=== PATIENT | male | born 1945 | race Caucasian/White ===

== ENCOUNTER 2018-07-22 23:40 | Emergency (ER) | payer MEDICARE ==
[2018-07-23] MEDS: CLINDAMYCIN 150 MG CAP PO (00:11)
== END 2018-07-23 00:21 | disposition home or self-care (01) ==
LOC: M ED 23:40
DX: L02.01 Cutaneous abscess of face (principal); I10 Essential (primary) hypertension; N40.0 Benign prostatic hyperplasia without lower urinary tract symptoms; I25.2 Old myocardial infarction; Z79.899 Other long term (current) drug therapy; Z79.82 Long term (current) use of aspirin
CPT/HCPCS: 99282

== ENCOUNTER → 2021-06-06 | Outpatient (REF) | payer MEDICARE ==
[~2021-06-06] MED LIST: ASPI-527 PO; CARV25TA; CENT1TAB PO; CHLO125TA; CLEO300C2 PO; FISH100049 PO; GARL10CA2 PO; LISI40TA4; METF500T13; PREVINJ2; SIMV80TA13; VIAG100T PO; VITA100L PO; VITA400T PO
== END ==
LOC: M LAB REF 17:54
PROVIDERS: ATTEND Physician Assistant
DX: R31.9 Hematuria, unspecified (principal)

== ENCOUNTER → 2023-12-01 | Outpatient (CLI) | payer MEDICARE | LOC: M ONCR 12:43 | PROVIDERS: ATTEND General Practice | DX: C44.229 Squamous cell carcinoma of skin of left ear and external auricular canal (principal); F17.210 Nicotine dependence, cigarettes, uncomplicated; Z79.82 Long term (current) use of aspirin; Z79.84 Long term (current) use of oral hypoglycemic drugs; Z79.899 Other long term (current) drug therapy ==

== ENCOUNTER 2023-12-11 12:45 | Outpatient (RCR) | payer MEDICARE | END 2023-12-12 | LOC: M ONCR 12:45 | PROVIDERS: ATTEND General Practice | DX: Z51.0 Encounter for antineoplastic radiation therapy (principal); C44.229 Squamous cell carcinoma of skin of left ear and external auricular canal ==

== ENCOUNTER → 2024-01-12 | Outpatient (RCR) | payer MEDICARE | LOC: M ONCR 12-14 16:01 | PROVIDERS: ATTEND General Practice | DX: Z51.0 Encounter for antineoplastic radiation therapy (principal); C44.229 Squamous cell carcinoma of skin of left ear and external auricular canal ==

== ENCOUNTER 2024-01-18 16:16 | Outpatient (RCR) | payer MEDICARE | END 2024-02-11 | LOC: M ONCR 16:16 | PROVIDERS: ATTEND General Practice | DX: Z51.0 Encounter for antineoplastic radiation therapy (principal); C44.229 Squamous cell carcinoma of skin of left ear and external auricular canal ==

== ENCOUNTER → 2024-02-14 | Outpatient (CLI) | payer MEDICARE | LOC: M ONCR 15:02 | PROVIDERS: ATTEND General Practice | DX: C44.229 Squamous cell carcinoma of skin of left ear and external auricular canal (principal); L98.8 Other specified disorders of the skin and subcutaneous tissue; Z92.3 Personal history of irradiation ==

== ENCOUNTER → 2024-08-16 | Outpatient (CLI) | payer MEDICARE, OTHER | LOC: M ONCR 13:50 | PROVIDERS: ATTEND General Practice | DX: Z08 Encounter for follow-up examination after completed treatment for malignant neoplasm (principal); Z85.828 Personal history of other malignant neoplasm of skin; F17.210 Nicotine dependence, cigarettes, uncomplicated; Z79.82 Long term (current) use of aspirin; Z79.84 Long term (current) use of oral hypoglycemic drugs; Z79.899 Other long term (current) drug therapy; Z92.3 Personal history of irradiation ==

== ENCOUNTER 2025-06-23 13:11 | Inpatient (IN) | payer MEDICARE, OTHER ==
[2025-06-23] VITALS (9 sets, daily range): BP systolic 163–222; BP diastolic 73–108; TEMP 97.4; O2SAT 92–98
[~2025-06-23] VITALS: Ht 172.7 cm; Wt 91.6 kg
[~2025-06-23 13:11] MED LIST changes: +LISI40TA10; -LISI40TA4
[2025-06-23 13:41] LABS: VENOUS BASE EXCESS -0.1 (-2.0-2.0); VENOUS HCO3 27.1 MMOL/L (23.0-27.0); VENOUS O2 SATURATION 55.2 % (60.0-80.0); VENOUS PARTIAL PRESSURE CO2 54.4 mmHg (38.0-50.0); VENOUS PARTIAL PRESSURE O2 31.2 mmHg (30.0-50.0); VENOUS PH 7.315 UNITS (7.330-7.430); VENOUS STANDARD HCO3 23.4 MMOL/L; VENOUS TOTAL CO2 28.8 MMOL/L (24.0-28.0)
[2025-06-23 13:46] LABS: BASO # 0.0 10^3/uL (0.0-0.2); BASO % 0.4 % (0.0-1.0); EOS # 0.1 10^3/uL (0.0-0.5); EOS % 1.4 % (0.0-3.0); LYMPH # 1.0 10^3/uL (1.5-5.0); LYMPH % 11.6 % (24.0-44.0); MONO # 0.9 10^3/uL (0.0-0.8); MONO % 10.4 % (2.0-8.0); NEUTROPHILS # 6.5 10^3/uL (1.5-8.5); NEUTROPHILS % 75.7 % (36.0-66.0); PLATELET COUNT, AUTOMATED 249 10^3/uL (150-450)
[2025-06-23 14:10] LABS: INR 1.06
[2025-06-23 14:16] LABS: ALT/SGPT 28 U/L (7.0-40); AST/SGOT 17 U/L (<34); CALCIUM LEVEL 8.9 MG/DL (8.3-10.6); CARBON DIOXIDE LEVEL 28 MMOL/L (20-31); CHLORIDE LEVEL 93 MMOL/L (98-107); CREATININE FOR GFR 0.81 MG/DL (0.70-1.30); GLOMERULAR FILTRATION RATE > 90.0 (>42); POTASSIUM SERUM 4.7 MMOL/L (3.5-5.1); SODIUM LEVEL 130 MMOL/L (136-145)
[2025-06-23 14:18] LABS: THYROXINE (T4) 4.4 UG/DL (4.5-10.9)
[2025-06-23] MEDS ORDERED: CHLO125TA PO (14:26)
[2025-06-23] MEDS ORDERED: VITA400T19 PO (14:26)
[2025-06-23] MEDS ORDERED: OMEG10002 PO (14:26)
[2025-06-23] MEDS ORDERED: B-12100T2 PO (14:26)
[2025-06-23] MEDS ORDERED: ODOR100T3 PO (14:26)
[2025-06-23] MEDS ORDERED: ROSU20TA86 PO (14:26)
[2025-06-23] MEDS ORDERED: LOSA100T46 PO (14:26)
[2025-06-23] MEDS ORDERED: HOME MED LIST COMPLETE! XX SCH (14:30)
[2025-06-23 15:06] LABS: CPK CREATINE PHOSPHOKINASE 142.0 U/L (46-171)
[2025-06-23 15:07] LABS: CK-MB VALUE MASS 5.7 NG/ML (<3.6); MB/CK RELATIVE INDEX 4.01 (< OR =4)
[2025-06-23 15:36] LABS: CK-MB VALUE MASS 6.1 NG/ML (<3.6)
[2025-06-23 15:37] LABS: CPK CREATINE PHOSPHOKINASE 151 U/L (46-171); MB/CK RELATIVE INDEX 4.03 (< OR =4)
[2025-06-23] MEDS ORDERED: ATROPINE SULF 0.4 MG/ML 1 ML VIAL IV PRN (17:50)
[2025-06-23] MEDS ORDERED: DOPamine HCL 400 MG in IV 1 EA IV PRN (17:50)
[2025-06-23] MEDS: D5W/0.45% SODIUM CHLORIDE 1,000 ML IV SCH (18:16)
[2025-06-23] MEDS: IPRATROPIUM 0.5 MG/ALBUTEROL 2.5 MG INH SOL UD 3 ML NEB SCH (20:00)
[2025-06-23] MEDS: HEPARIN SOD 5000 UNITS/ML 1 ML VIAL/SYRINGE SC SCH (21:12)
[2025-06-23] MEDS: hydrALAZINE 20 MG/ML 1 ML VIAL IV PRN (21:13)
[2025-06-24] VITALS (25 sets, daily range): BP systolic 104–181; BP diastolic 56–91; TEMP 96.8–98; O2SAT 91–97
[2025-06-24 06:39] LABS: BASO # 0.0 10^3/uL (0.0-0.2); BASO % 0.2 % (0.0-1.0); EOS # 0.0 10^3/uL (0.0-0.5); EOS % 0.0 % (0.0-3.0); LYMPH # 0.5 10^3/uL (1.5-5.0); LYMPH % 7.8 % (24.0-44.0); MONO # 0.3 10^3/uL (0.0-0.8); MONO % 3.9 % (2.0-8.0); NEUTROPHILS # 5.7 10^3/uL (1.5-8.5); NEUTROPHILS % 87.8 % (36.0-66.0); PLATELET COUNT, AUTOMATED 210 10^3/uL (150-450)
[2025-06-24 07:05] LABS: INR 1.13
[2025-06-24 07:21] LABS: ALT/SGPT 55 U/L (7.0-40); AST/SGOT 49 U/L (<34); CALCIUM LEVEL 8.0 MG/DL (8.3-10.6); CARBON DIOXIDE LEVEL 26 MMOL/L (20-31); CHLORIDE LEVEL 92 MMOL/L (98-107); CREATININE FOR GFR 0.66 MG/DL (0.70-1.30); GLOMERULAR FILTRATION RATE > 90.0 (>42); POTASSIUM SERUM 4.2 MMOL/L (3.5-5.1); SODIUM LEVEL 126 MMOL/L (136-145)
[2025-06-24] MEDS: LR 1,000 ML IV SCH (08:05)
[2025-06-24] MEDS ORDERED: LOSARTAN 50 MG TABLET PO SCH (09:00)
[2025-06-24] MEDS ORDERED: CHLORTHALIDONE 12.5 MG PER 1/2 TABLET PO SCH (09:00)
[2025-06-24] MEDS: PANTOPRAZOLE 40MG VIAL IV SCH (09:13)
[2025-06-24] MEDS ORDERED: ONDANSETRON 4MG/2ML VIAL As Ordered ONE (12:23)
[2025-06-24] MEDS ORDERED: dexAMETHasone 4 MG/ML 1 ML VIAL As Ordered ONE (12:23)
[2025-06-24] MEDS ORDERED: LIDOCAINE 2% 100 MG/5 ML SDV (FOR ANES.) As Ordered ONE (12:24)
[2025-06-24] MEDS ORDERED: MIDAZOLAM INJ 2 MG/2 ML VIAL As Ordered ONE (12:27)
[2025-06-24] MEDS: ceFAZolin SODIUM 2 GM in DEXTROSE 5% (D5W) ADV/MINI-BAG 50 ML IV ONE (12:28)
[2025-06-24] MEDS ORDERED: ETOMIDATE 20 MG/10 ML VIAL As Ordered ONE (12:48)
[2025-06-24] MEDS ORDERED: ROCURONIUM BROMIDE 50MG/5ML VIAL As Ordered ONE (12:49)
[2025-06-24] MEDS ORDERED: GLYCOPYRROLATE INJ 0.2 MG/ML 2 ML VIAL As Ordered ONE (12:50)
[2025-06-24] MEDS ORDERED: ATROPINE SULF 0.4 MG/ML 1 ML VIAL As Ordered ONE (12:50)
[2025-06-24] MEDS ORDERED: ACETAMINOPHEN 1000MG/100ML IV BAG As Ordered ONE (13:38)
[2025-06-24] MEDS ORDERED: SUGAMMADEX SODIUM 500 MG/5 ML VIAL As Ordered ONE (13:58)
[2025-06-24] MEDS: LIDOCAINE 1% SDV 30 ML VIAL As Ordered ONE (14:46)
[2025-06-24] MEDS ORDERED: ACETAMINOPHEN 325 MG TAB PO PRN (15:10)
[2025-06-24] MEDS ORDERED: DEXTROSE 50% 50 ML SYRINGE IV PRN (16:25)
[2025-06-24] MEDS ORDERED: GLUCOSE 4 GM CHEW PO PRN (16:25)
[2025-06-24] MEDS ORDERED: GLUCAGON INJ 1 MG VIAL SC PRN (16:25)
[2025-06-24] MEDS: MULTIVITAMINS/MINERALS THERAP 1 TAB PO SCH (16:39)
[2025-06-24] MEDS: VITAMIN D (CHOLECALCIFEROL) 400 INTERNATIONAL UNITS TAB PO SCH (17:45)
[2025-06-24] MEDS: ASPIRIN ENTERIC 325 MG TAB PO SCH (17:45)
[2025-06-24] MEDS: INSULIN LISPRO (NovoLOG) PER UNIT SC SCH ×2 (17:46→21:00)
[2025-06-24] MEDS: REMDESIVIR 200 MG in NS 250 ML IV ONE (18:50)
[2025-06-24] MEDS: OMEGA-3 1000 MG CAPSULE PO SCH (19:58)
[2025-06-24] MEDS: ROSUVASTATIN 10 MG TAB PO SCH (19:58)
[2025-06-24] MEDS ORDERED: metFORMIN 500 MG TAB PO SCH (21:00)
[2025-06-24] MEDS: ceFAZolin SOD 1 GM in DEXTROSE 5% (D5W) ADV/MINI-BAG 50 ML IV SCH (21:35)
[2025-06-24] MEDS: CALCIUM CARBONATE 500 MG CHEW U/D PO ONE (21:36)
[2025-06-25] VITALS (12 sets, daily range): BP systolic 144–177; BP diastolic 64–79; TEMP 96.6–97.4; O2SAT 88–96
[2025-06-25 07:21] LABS: BASO # 0.0 10^3/uL (0.0-0.2); BASO % 0.1 % (0.0-1.0); EOS # 0.0 10^3/uL (0.0-0.5); EOS % 0.0 % (0.0-3.0); LYMPH # 0.7 10^3/uL (1.5-5.0); LYMPH % 5.5 % (24.0-44.0); MONO # 0.7 10^3/uL (0.0-0.8); MONO % 5.8 % (2.0-8.0); NEUTROPHILS # 10.7 10^3/uL (1.5-8.5); NEUTROPHILS % 88.2 % (36.0-66.0); PLATELET COUNT, AUTOMATED 222 10^3/uL (150-450)
[2025-06-25 07:53] LABS: ALT/SGPT 60 U/L (7.0-40); AST/SGOT 61 U/L (<34); CALCIUM LEVEL 8.2 MG/DL (8.3-10.6); CARBON DIOXIDE LEVEL 27 MMOL/L (20-31); CHLORIDE LEVEL 93 MMOL/L (98-107); CREATININE FOR GFR 0.62 MG/DL (0.70-1.30); GLOMERULAR FILTRATION RATE > 90.0 (>42); POTASSIUM SERUM 4.6 MMOL/L (3.5-5.1); SODIUM LEVEL 128 MMOL/L (136-145)
[2025-06-25] MEDS: LOSARTAN 50 MG TABLET PO SCH (08:54)
[2025-06-25] MEDS: traMADol 50 MG TAB PO PRN (08:55)
[2025-06-25] MEDS ORDERED: CHLORTHALIDONE 12.5 MG PER 1/2 TABLET PO SCH (09:00)
[2025-06-25 12:30] LABS: OSMOLALITY SERUM 270 MOSM/KG (280-301)
[2025-06-25] MEDS: FUROSEMIDE 20 MG/2 ML VIAL IV ONE (12:41)
[2025-06-25 13:38] LABS: CORTISOL AM 1.5 UG/DL (4.3-22.4)
[2025-06-25 13:41] LABS: SODIUM,RANDOM URINE 65.0 MMOL/L
[2025-06-25 17:55] LABS: CALCIUM LEVEL 8.3 MG/DL (8.3-10.6); CARBON DIOXIDE LEVEL 30 MMOL/L (20-31); CHLORIDE LEVEL 91 MMOL/L (98-107); CREATININE FOR GFR 0.65 MG/DL (0.70-1.30); GLOMERULAR FILTRATION RATE > 90.0 (>42); POTASSIUM SERUM 4.8 MMOL/L (3.5-5.1); SODIUM LEVEL 128 MMOL/L (136-145)
[2025-06-25] MEDS: CALCIUM CARBONATE 500 MG CHEW U/D PO ONE (21:04)
[2025-06-26] VITALS (8 sets, daily range): BP systolic 121–165; BP diastolic 55–74; TEMP 97–98.1; O2SAT 90–94
[2025-06-26 06:01] LABS: BASO # 0.0 10^3/uL (0.0-0.2); BASO % 0.1 % (0.0-1.0); EOS # 0.0 10^3/uL (0.0-0.5); EOS % 0.0 % (0.0-3.0); LYMPH # 0.9 10^3/uL (1.5-5.0); LYMPH % 11.0 % (24.0-44.0); MONO # 0.7 10^3/uL (0.0-0.8); MONO % 8.7 % (2.0-8.0); NEUTROPHILS # 6.5 10^3/uL (1.5-8.5); NEUTROPHILS % 80.0 % (36.0-66.0); PLATELET COUNT, AUTOMATED 223 10^3/uL (150-450)
[2025-06-26 06:33] LABS: ALT/SGPT 50 U/L (7.0-40); AST/SGOT 39 U/L (<34); CALCIUM LEVEL 8.1 MG/DL (8.3-10.6); CARBON DIOXIDE LEVEL 33 MMOL/L (20-31); CHLORIDE LEVEL 91 MMOL/L (98-107); CREATININE FOR GFR 0.62 MG/DL (0.70-1.30); GLOMERULAR FILTRATION RATE > 90.0 (>42); MAGNESIUM LEVEL 2.1 MG/DL (1.8-2.4); POTASSIUM SERUM 4.6 MMOL/L (3.5-5.1); SODIUM LEVEL 129 MMOL/L (136-145)
[2025-06-26] MEDS: FUROSEMIDE 20 MG/2 ML VIAL IV ONE (10:40)
[2025-06-26] MEDS: ONDANSETRON 4MG/2ML VIAL IV PRN (14:07)
[2025-06-26] MEDS: PANTOPRAZOLE 40MG VIAL IV SCH (16:44)
[2025-06-27] VITALS (7 sets, daily range): BP systolic 132–162; BP diastolic 63–72; TEMP 97.5–97.9; O2SAT 84–97
[2025-06-27 05:16] LABS: BASO # 0.0 10^3/uL (0.0-0.2); BASO % 0.0 % (0.0-1.0); EOS # 0.0 10^3/uL (0.0-0.5); EOS % 0.0 % (0.0-3.0); LYMPH # 1.2 10^3/uL (1.5-5.0); LYMPH % 12.6 % (24.0-44.0); MONO # 1.0 10^3/uL (0.0-0.8); MONO % 10.0 % (2.0-8.0); NEUTROPHILS # 7.4 10^3/uL (1.5-8.5); NEUTROPHILS % 77.0 % (36.0-66.0); PLATELET COUNT, AUTOMATED 241 10^3/uL (150-450)
[2025-06-27 05:34] LABS: ALT/SGPT 47 U/L (7.0-40); AST/SGOT 24 U/L (<34); CALCIUM LEVEL 8.0 MG/DL (8.3-10.6); CARBON DIOXIDE LEVEL 31 MMOL/L (20-31); CHLORIDE LEVEL 93 MMOL/L (98-107); CREATININE FOR GFR 0.56 MG/DL (0.70-1.30); GLOMERULAR FILTRATION RATE > 90.0 (>42); MAGNESIUM LEVEL 2.2 MG/DL (1.8-2.4); POTASSIUM SERUM 4.6 MMOL/L (3.5-5.1); SODIUM LEVEL 131 MMOL/L (136-145)
[2025-06-27] MEDS: INSULIN LISPRO (NovoLOG) PER UNIT SC SCH (07:30)
[2025-06-27] MEDS: predniSONE 10 MG TAB PO SCH (08:23)
[2025-06-27] MEDS: FUROSEMIDE 20 MG/2 ML VIAL IV ONE (10:05)
[2025-06-27] MEDS ORDERED: FURO20TA2 PO (12:35)
[2025-06-27] MEDS ORDERED: PROT1TAB2 PO (12:35)
[2025-06-27] MEDS ORDERED: PRED10TA2 PO (12:35)
[2025-06-28 19:38] LABS: LYME TOTAL ANTIBODY CIA <= 0.90 Index (<=0.90)
== END 2025-06-27 14:58 | disposition home health service (06) | DRG 242 ==
LOC: M ED 13:11 → M ED INP 17:49 → M ICU 20:15
PROVIDERS: ADMIT Internal Medicine Critical Care Medicine; ATTEND Internal Medicine
PROC: 3E0 Administration, Physiological Systems and Anatomical Regions, Introduction (ICD-10-PCS; 2025-06-23)
PROC: 02H63JZ Insertion of Pacemaker Lead into Right Atrium, Percutaneous Approach (ICD-10-PCS; 2025-06-24)
PROC: 02HK3JZ Insertion of Pacemaker Lead into Right Ventricle, Percutaneous Approach (ICD-10-PCS; 2025-06-24)
PROC: XW033E5 Introduction of Remdesivir Anti-infective into Peripheral Vein, Percutaneous Approach, New Technology Group 5 (ICD-10-PCS; 2025-06-24)
PROC: 0JH606Z Insertion of Pacemaker, Dual Chamber into Chest Subcutaneous Tissue and Fascia, Open Approach (ICD-10-PCS; principal; 2025-06-24 13:00)
PROC: B246ZZZ Ultrasonography of Right and Left Heart (ICD-10-PCS; 2025-06-25)
DX: I44.2 Atrioventricular block, complete (principal); U07.1 COVID-19; I50.33 Acute on chronic diastolic (congestive) heart failure; E87.1 Hypo-osmolality and hyponatremia; E87.29 Other acidosis; E78.5 Hyperlipidemia, unspecified; F17.200 Nicotine dependence, unspecified, uncomplicated; K52.9 Noninfective gastroenteritis and colitis, unspecified; I16.0 Hypertensive urgency; E86.0 Dehydration; F10.21 Alcohol dependence, in remission; I25.10 Atherosclerotic heart disease of native coronary artery without angina pectoris; N52.9 Male erectile dysfunction, unspecified; J44.9 Chronic obstructive pulmonary disease, unspecified; R00.1 Bradycardia, unspecified; E78.00 Pure hypercholesterolemia, unspecified; I45.2 Bifascicular block; E11.65 Type 2 diabetes mellitus with hyperglycemia; I27.20 Pulmonary hypertension, unspecified; I11.0 Hypertensive heart disease with heart failure; I25.2 Old myocardial infarction; R74.01 Elevation of levels of liver transaminase levels; Z85.828 Personal history of other malignant neoplasm of skin; Z95.5 Presence of coronary angioplasty implant and graft; Z68.30 Body mass index [BMI] 30.0-30.9, adult; Z92.3 Personal history of irradiation; Z79.82 Long term (current) use of aspirin; Z79.84 Long term (current) use of oral hypoglycemic drugs; Z79.899 Other long term (current) drug therapy

== ENCOUNTER 2025-07-19 14:10 | Observation (INO) | payer MEDICARE ==
[~2025-07-19] VITALS: Ht 172.7 cm; Wt 86.4 kg
[~2025-07-19 14:10] MED LIST changes: +B-12100T2 PO; +CHLO125TA PO; +FURO20TA2 PO; +LOSA100T46 PO; +ODOR100T3 PO; +OMEG10002 PO; +PRED10TA2 PO; +PROT1TAB2 PO; +ROSU20TA86 PO; +VITA400T19 PO
[2025-07-19 16:38] LABS: BASO # 0.0 10^3/uL (0.0-0.2); BASO % 0.6 % (0.0-1.0); EOS # 0.4 10^3/uL (0.0-0.5); EOS % 5.2 % (0.0-3.0); LYMPH # 0.8 10^3/uL (1.5-5.0); LYMPH % 11.2 % (24.0-44.0); MONO # 0.7 10^3/uL (0.0-0.8); MONO % 9.6 % (2.0-8.0); NEUTROPHILS # 5.3 10^3/uL (1.5-8.5); NEUTROPHILS % 73.1 % (36.0-66.0); PLATELET COUNT, AUTOMATED 271 10^3/uL (150-450)
[2025-07-19 16:42] LABS: ALT/SGPT 30 U/L (7.0-40); AST/SGOT 18 U/L (<34); CALCIUM LEVEL 8.8 MG/DL (8.3-10.6); CARBON DIOXIDE LEVEL 30 MMOL/L (20-31); CHLORIDE LEVEL 100 MMOL/L (98-107); CK-MB VALUE MASS 5.4 NG/ML (<3.6); CPK CREATINE PHOSPHOKINASE 110 U/L (46-171); CREATININE FOR GFR 0.71 MG/DL (0.70-1.30); GLOMERULAR FILTRATION RATE > 90.0 (>42); MB/CK RELATIVE INDEX 4.90 (< OR =4); POTASSIUM SERUM 4.3 MMOL/L (3.5-5.1); SODIUM LEVEL 139 MMOL/L (136-145)
[2025-07-19 17:05] LABS: KETONE, URINE AUTO RFX NEGATIVE (NEGATIVE); LEUKOCYTE ESTERASE UR AUTO RFX NEGATIVE (NEGATIVE); MUCUS, URINE RFX SMALL (NEGATIVE); NITRITE, URINE AUTO RFX NEGATIVE (NEGATIVE); RBC, URINE AUTO RFX 2 /HPF (0-3); SQUAM EPITHELIAL CELL UR AURFX 0 /HPF (0-6); WBC, URINE AUTO RFX 1 /HPF (0-3)
[2025-07-19] MEDS ORDERED: HOME MED LIST COMPLETE! XX SCH (18:05)
[2025-07-19] MEDS ORDERED: FURO20TA2 PO (18:05)
[2025-07-19] MEDS ORDERED: PANT40TA29 PO (18:05)
[2025-07-19 18:07] LABS: CK-MB VALUE MASS 5.1 NG/ML (<3.6)
[2025-07-19 18:09] LABS: CPK CREATINE PHOSPHOKINASE 102.0 U/L (46-171); MB/CK RELATIVE INDEX 5.0 (< OR =4)
[2025-07-19] MEDS ORDERED: ISOVUE-370 76% 100 ML VIAL As Ordered ONE (18:40)
[2025-07-19] MEDS: CLOPIDOGREL 75 MG TAB PO ONE (19:35)
[2025-07-19] MEDS ORDERED: GLUCOSE 4 GM CHEW PO PRN (19:55)
[2025-07-19] MEDS ORDERED: DEXTROSE 50% 50 ML SYRINGE IV PRN (19:55)
[2025-07-19] MEDS ORDERED: GLUCAGON INJ 1 MG VIAL SC PRN (19:55)
[2025-07-19] MEDS: ROSUVASTATIN 10 MG TAB PO SCH (20:53)
[2025-07-20 05:20] VITALS: BP 166/60; TEMP 97.7; O2SAT 98
[2025-07-20 06:39] LABS: BASO # 0.0 10^3/uL (0.0-0.2); BASO % 0.6 % (0.0-1.0); EOS # 0.4 10^3/uL (0.0-0.5); EOS % 6.5 % (0.0-3.0); LYMPH # 1.1 10^3/uL (1.5-5.0); LYMPH % 17.0 % (24.0-44.0); MONO # 0.7 10^3/uL (0.0-0.8); MONO % 11.0 % (2.0-8.0); NEUTROPHILS # 4.3 10^3/uL (1.5-8.5); NEUTROPHILS % 64.6 % (36.0-66.0); PLATELET COUNT, AUTOMATED 241 10^3/uL (150-450)
[2025-07-20 07:14] LABS: CALCIUM LEVEL 8.2 MG/DL (8.3-10.6); CARBON DIOXIDE LEVEL 29 MMOL/L (20-31); CHLORIDE LEVEL 103 MMOL/L (98-107); CREATININE FOR GFR 0.61 MG/DL (0.70-1.30); GLOMERULAR FILTRATION RATE > 90.0 (>42); POTASSIUM SERUM 4.1 MMOL/L (3.5-5.1); SODIUM LEVEL 140 MMOL/L (136-145)
[2025-07-20] MEDS: INSULIN LISPRO (NovoLOG) PER UNIT SC SCH (07:30)
[2025-07-20] MEDS: FUROSEMIDE 40 MG TAB PO SCH (08:14)
[2025-07-20] MEDS: PANTOPRAZOLE 40MG TAB PO SCH (08:14)
[2025-07-20] MEDS: CLOPIDOGREL 75 MG TAB PO SCH (08:14)
[2025-07-20] MEDS: LOSARTAN 50 MG TABLET PO SCH (08:14)
[2025-07-20] MEDS: ASPIRIN 81 MG ENTERIC TABLET PO SCH (08:15)
[2025-07-20] MEDS ORDERED: LEVALBUTEROL 1.25 MG 0.5ML CONCENTRATE NEB INH PRN (10:25)
[2025-07-20] MEDS ORDERED: LORazepam 0.5 MG TAB PO ONE (10:25)
[2025-07-20 12:00] VITALS: BP 130/63; TEMP 97.9; O2SAT 91
[2025-07-20 20:00] VITALS: BP 153/68; TEMP 97.5; O2SAT 95
[2025-07-21 06:00] VITALS: BP 150/68; TEMP 97.9; O2SAT 95
[2025-07-21 06:15] LABS: BASO # 0.0 10^3/uL (0.0-0.2); BASO % 0.4 % (0.0-1.0); EOS # 0.5 10^3/uL (0.0-0.5); EOS % 7.2 % (0.0-3.0); LYMPH # 1.1 10^3/uL (1.5-5.0); LYMPH % 15.7 % (24.0-44.0); MONO # 0.8 10^3/uL (0.0-0.8); MONO % 11.1 % (2.0-8.0); NEUTROPHILS # 4.7 10^3/uL (1.5-8.5); NEUTROPHILS % 65.2 % (36.0-66.0); PLATELET COUNT, AUTOMATED 261 10^3/uL (150-450)
[2025-07-21 06:39] LABS: CALCIUM LEVEL 8.4 MG/DL (8.3-10.6); CARBON DIOXIDE LEVEL 31 MMOL/L (20-31); CHLORIDE LEVEL 101 MMOL/L (98-107); CREATININE FOR GFR 0.59 MG/DL (0.70-1.30); GLOMERULAR FILTRATION RATE > 90.0 (>42); POTASSIUM SERUM 4.0 MMOL/L (3.5-5.1); SODIUM LEVEL 140 MMOL/L (136-145)
[2025-07-21] MEDS ORDERED: CLOP75TA2 PO (07:32)
[2025-07-21] MEDS ORDERED: ASPI81TAEC PO (07:32)
[2025-07-21] MEDS ORDERED: FURO40TA2 PO (07:32)
[2025-07-21] MEDS ORDERED: CARV25TA PO (07:32)
[2025-07-21] MEDS ORDERED: METF500T13 PO (07:32)
[2025-07-21 08:01] VITALS: BP 162/70
[2025-07-21 08:05] VITALS: BP 162/70; TEMP 97.9; O2SAT 95
[2025-07-21 11:54] VITALS: BP 135/64; TEMP 97.7; O2SAT 91
== END 2025-07-21 15:30 | disposition home health service (06) ==
LOC: M ED 14:10 → EDBD 14:10 → M ED INP 14:11 → M MS4PR 07-20 05:09
PROVIDERS: ADMIT Internal Medicine Nephrology; ATTEND Internal Medicine Nephrology
DX: G45.9 Transient cerebral ischemic attack, unspecified (principal); I25.10 Atherosclerotic heart disease of native coronary artery without angina pectoris; Z95.5 Presence of coronary angioplasty implant and graft; I10 Essential (primary) hypertension; E78.5 Hyperlipidemia, unspecified; Z79.82 Long term (current) use of aspirin; Z79.84 Long term (current) use of oral hypoglycemic drugs; Z79.899 Other long term (current) drug therapy; Z86.16 Personal history of COVID-19; E11.9 Type 2 diabetes mellitus without complications; I25.2 Old myocardial infarction; N40.0 Benign prostatic hyperplasia without lower urinary tract symptoms; N52.9 Male erectile dysfunction, unspecified; Z85.828 Personal history of other malignant neoplasm of skin; F17.200 Nicotine dependence, unspecified, uncomplicated; I67.1 Cerebral aneurysm, nonruptured; Z99.81 Dependence on supplemental oxygen
CPT/HCPCS: 36415; 70450; 70496; 70498; 80048; 80076; 81001; 82550; 82553; 84484; 85025; 93005; 97161; 97530; 99285; G0378; J1815; Q9967